=== PATIENT | male | born 1985 | race Caucasian/White ===

== ENCOUNTER 2023-04-09 17:30 | Outpatient (CLI) | payer BC | END 2023-04-09 17:31 | disposition home or self-care (01) | LOC: SLEEPLAB 17:30 | PROVIDERS: ATTEND Family Medicine | DX: G47.33 Obstructive sleep apnea (adult) (pediatric) (principal); R53.83 Other fatigue; R51.9 Headache, unspecified; R06.83 Snoring; F90.9 Attention-deficit hyperactivity disorder, unspecified type; F10.10 Alcohol abuse, uncomplicated; I49.3 Ventricular premature depolarization; J34.2 Deviated nasal septum; L30.9 Dermatitis, unspecified | CPT/HCPCS: 95800 ==

== ENCOUNTER 2025-05-09 15:13 | Outpatient (CLI) | payer BC | END 2025-05-09 15:14 | disposition home or self-care (01) | LOC: SCSMRI 15:13 | PROVIDERS: ATTEND Surgery | DX: M47.26 Other spondylosis with radiculopathy, lumbar region (principal); M48.061 Spinal stenosis, lumbar region without neurogenic claudication; M48.07 Spinal stenosis, lumbosacral region | CPT/HCPCS: 72120; 72148 ==